=== PATIENT | female | born 1955 | race Caucasian/White ===

== ENCOUNTER 2017-03-02 07:55 | Day surgery (SDC) | payer OTHER ==
[~2017-03-02] VITALS: Ht 152.4 cm; Wt 70.9 kg
[2017-03-02] MEDS ORDERED: LIDOCAINE 4% SOLUTION 50 ML BTL ONE (08:02)
[2017-03-02] MEDS ORDERED: NO MEDS (08:14)
[2017-03-02 08:30] VITALS: BP 139/81; PULSE 68; RESP 18
[2017-03-02 09:50] VITALS: BP 117/71; RESP 20
[2017-03-02] MEDS ORDERED: FENTAnyl 50 MCG/ML VIAL ONE (10:07)
[2017-03-02] MEDS ORDERED: MIDAZOLAM 1 MG/ML 2 ML INJ ONE (10:08)
--- NOTE | 2017-03-03 10:15 | GILP ---
DATE OF PROCEDURE: PROCEDURE PERFORMED: Esophagogastroduodenoscopy. PREOP DIAGNOSIS: Patient presenting with a history of chronic heartburn, rule out gastroesophageal reflux disease, rule out [place] esophagus. POSTOP DIAGNOSIS: 1. Mild reflux esophagitis. 2. 1 cm submucosal type of polyp noted, 1 cm above the GE junction. Biopsy was done. 3. Minimal patchy gastritis. 4. Submucosal polyp noted in the fundus measuring about 5 mm in diameter. 5. Duodenum normal. DESCRIPTION OF PROCEDURE: After informed written consent is obtained, patient was asked to lay in the left lateral side. 2 mg Versed and 50 mcg of fentanyl was given as intravenous anesthesia. When the patient became somnolent, Olympus video upper endoscope was introduced into the oropharynx and then into the esophagus. Esophagus showed evidence of patchy areas of erythema just over the GE junction. There was about 1 cm submucosal polyp noted over the GE junction. Biopsy was done, but the mucosa was friable. Scope at this time was advanced into the stomach. The stomach showed evidence of several areas of patchy erythema. There is evidence of at least 5 mm submucosal polyp noted in the gastric fundus. Biopsy was done. This also appeared to be viable. Biopsy was done from the antrum, lesser curvature and the fundus to rule out H. pylori infection. Duodenum appeared normal. Endoscope at this time was withdrawn. On the way out, no additional abnormalities detected and the procedure was terminated. PLAN: Recommend wait for the pathology report. We will recommend omeprazole 40 mg a day for 2 months. Dictated By: Dennis Garcia MD /june/latia /Document#: [id number]
--- NOTE | 2017-03-03 10:20 | GILP ---
DATE OF PROCEDURE: 03/02/2017 PROCEDURE PERFORMED: Colonoscopy. PREOPERATIVE DIAGNOSIS: Screening colonoscopy. Rule out colon polyps. POSTOPERATIVE DIAGNOSES: 1. No polyps. 2. Minimal external hemorrhoids were noted. DESCRIPTION OF PROCEDURE: After informed written consent is obtained, patient was asked to lie on the left lateral side. A total of 2 mg Versed and 75 mcg of fentanyl was given as intravenous anesthesia. When the patient became somnolent, Olympus video colonoscope was introduced into the rectum and the scope was advanced all the way to the cecum. The entire colon appeared perfectly normal. No polyps noted. No other abnormalities detected. On the way out, retroflexion was performed with no internal hemorrhoids noted. On the way out, external hemorrhoids were noted and the procedure was terminated. PLAN: Recommend a high fiber diet. Repeat colonoscopy in 10 years. Dictated By: Dennis Garcia MD /june/charlotte /Document#: [id number] ; YASIR PASCAL MD
== END 2017-03-02 12:49 | disposition home or self-care (01) ==
LOC: GIL 07:55
PROVIDERS: ATTEND Internal Medicine Gastroenterology
DX: Z12.11 Encounter for screening for malignant neoplasm of colon (principal); K21.0 Gastro-esophageal reflux disease with esophagitis; K64.4 Residual hemorrhoidal skin tags; K29.60 Other gastritis without bleeding
CPT/HCPCS: 43239; 45378; 88305; 88312; J2250; J3010

== ENCOUNTER 2018-08-15 14:04 | Emergency (ER) | payer OTHER ==
[~2018-08-15] VITALS: Ht 167.6 cm; Wt 72.2 kg
[~2018-08-15 14:04] MED LIST: NO MEDS
[2018-08-15 14:22] VITALS: Ht 167.6 cm; Wt 72.2 kg
[2018-08-15] MEDS ORDERED: ONDANSETRON 4 MG INJ IV STA (15:12)
[2018-08-15] MEDS ORDERED: SOD CHLORIDE 0.9% 1,000 ML IV STA (15:12)
[2018-08-15] MEDS ORDERED: morphine 4 MG/ML VIAL IV STA (15:12)
[2018-08-15] MEDS ORDERED: KETOROLAC 30 MG INJ IV STA (16:28)
[2018-08-15] MEDS ORDERED: CEFTRIAXONE 1 GM/50 ML (PMX) 50 ML IVPB ONE (16:30)
[2018-08-15] MEDS ORDERED: IBUP800T48 PO (17:23)
[2018-08-15] MEDS ORDERED: CEPH-443 PO (17:23)
[2018-08-15 17:30] VITALS: BP 145/45; PULSE 68; RESP 18
--- NOTE | 2018-08-15 19:05 | ERD ---
ER Documentation Chief Complaint Chief Complaint Complains of back pain and nausea x 2 days HPI This is a very pleasant 62-year-old female that presents to the emergency department complaining of lower back pain that is been present for the past 48 hours. She states the pain is localized to the midportion of the back but she is also been experiencing frequency urgency and dysuria as well as suprapubic tenderness for the past 48 hours. She had no fevers no shaking or chills. She has not expressed any nausea vomiting diarrhea constipation. She said no recent travel or prolonged immobilization. She denies any changes in her bowel frequency. She denies any saddle anesthesia. She states the back pain does not radiate down the legs and she denies any numbness or tingling of her lower extremities. ROS All systems reviewed and are negative except as per history of present illness. Medications Home Meds Active Scripts Ibuprofen* (Motrin*) 800 Mg Tab, 800 MG PO Q6H PRN for PAIN AND OR ELEVATED TEMP, #30 TAB Prov:ИРИНА MCKNIGHT MD 08/15/18 Cephalexin* (Keflex*) 500 Mg Capsule, 500 MG PO QID for 7 Days, CAP Prov:ИРИНА MCKNIGHT MD 08/15/18 Reported Medications [No Meds] No Conflict Check 03/02/17 Allergies Allergies: Coded Allergies: No Known Allergy (Unverified , 03/02/17) PMhx/Soc History of Surgery: Yes (OOPHERECTOMY, HYSTERECTOMY, CHOLECYTECTOMY) Anesthesia Reaction: No Hx Neurological Disorder: No Hx Respiratory Disorders: No Hx Cardiac Disorders: No Hx Psychiatric Problems: No Hx Miscellaneous Medical Probl: No Hx Alcohol Use: No Hx Substance Use: No Hx Tobacco Use: No Smoking Status: Never smoker Physical Exam Vitals Vital Signs Date Temp Pulse Resp B/P (MAP) Pulse Ox O2 O2 Flow FiO2 Time Delivery Rate 08/15/18 98.3 89 20 181/82 99 14:22 (115) Physical Exam Constitutional:Well-developed. Well-nourished. HEENT:Normocephalic. Atraumatic.Pupils were equal round reactive to light. Moist mucous membranes.No tonsillar exudates. Neck: No nuchal rigidity. No lymphadenopathy. No posterior cervical spine tenderness or step-offs. Respiratory: Not using accessory muscles of respiration.Lungs were clear to auscultation bilaterally. No rhonchi. No rales. No wheezing. Cardiovascular: Regular rate regular rhythm.No murmurs. No rubs were appre ciated.S1, S2 normal. Distal pulses are palpable 2+ bilaterally. GI: Abdomen was soft. Nontender. No pulsatile abdominal masses or bruits. No rebound. No guarding. Bowel sounds were present and normal. Right CVA tenderness. Mild suprapubic tenderness. Muscle skeletal: Full range of motion of both the upper and lower extremities bilaterally.Normal muscle tone.No assymetrical calf tenderness or swelling. No tenderness with palpation or percussion over the thoracic or lumbar spinous processes. Straight leg test negative bilaterally. Skin: No petechia, no purpura. No lesions on the palms or the soles of the feet. No maculopapular rash. NEURO: Patient was alert, awake, orientated x3.No facial droop. Gait observed and normal with no ataxia.Speech had regular rate and rhythm. No focal neurolo gical deficits. Result Diagram: 08/15/18 1536 08/15/18 1536 Results 24 hrs Laboratory Tests Test 08/15/18 15:15 08/15/18 15:36 Urine Color STRAW Urine Clarity SLIGHTLY CLOUDY Urine pH 7.0 Urine Specific [place] 1.009 Urine Ketones NEGATIVE mg/dL Urine Nitrite NEGATIVE mg/dL Urine Bilirubin NEGATIVE mg/dL Urine Urobilinogen NEGATIVE mg/dL Urine Leukocyte Esterase TRACE Josep/ul Urine Microscopic RBC 0 /HPF Urine Microscopic WBC 6 /HPF Urine Squamous Epithelial Cells FEW /HPF Urine Hemoglobin NEGATIVE mg/dL Urine Glucose NEGATIVE mg/dL Urine Total Protein NEGATIVE mg/dl White Blood Count 5.4 10^3/ul Red Blood Count 4.16 10^6/ul Hemoglobin 11.6 g/dl Hematocrit 36.1 % Mean Corpuscular Volume 86.8 fl Mean Corpuscular Hemoglobin 27.9 pg Mean Corpuscular Hemoglobin Concent 32.1 g/dl Red Cell Distribution Width 13.6 % Platelet Count 287 10^3/UL Mean Platelet Volume 11.0 fl Immature Granulocytes % 0.200 % Neutrophils % 48.0 % Lymphocytes % 31.3 % Monocytes % 10.7 % Eosinophils % 8.9 % Basophils % 0.9 % Nucleated Red Blood Cells % 0.0 /100WBC Immature Granulocytes # 0.010 10^3/ul Neutrophils # 2.6 10^3/ul Lymphocytes # 1.7 10^3/ul Monocytes # 0.6 10^3/ul Eosinophils # 0.5 10^3/ul Basophils # 0.1 10^3/ul Nucleated Red Blood Cells # 0.0 10^3/ul Prothrombin Time 12.7 Sec Prothrombin Time Ratio 1.0 INR International Normalized Ratio 0.94 Activated Partial Thromboplast Time 28.1 Sec Sodium Level 140 mmol/L Potassium Level 3.5 mmol/L Chloride Level 104 mmol/L Carbon Dioxide Level 30 mmol/L Anion Gap 6 Blood Urea Nitrogen 16 mg/dl Creatinine 0.63 mg/dl Est Glomerular Filtrat Rate mL/min > 60 mL/min Glucose Level 109 mg/dl Calcium Level 9.5 mg/dl Troponin I < 0.012 ng/ml Current Medications Medications Dose Sig/Andrade Start Time Status Last (Trade) Ordered Route PRN Stop Time Admin Dose Reason Admin Sodium 1,000 ml @ Q1H STAT 08/15/18 DC 08/15/18 Chloride 1,000 mls/hr IV 15:12 08/15/18 15:40 16:11 Morphine 4 mg ONCE STAT 08/15/18 DC 08/15/18 Sulfate IV 15:12 08/15/18 15:41 (morphine) 15:14 Ondansetron 4 mg ONCE STAT 08/15/18 DC 08/15/18 HCl (Zofran IV 15:12 08/15/18 15:40 Inj) 15:14 Ceftriaxone 50 ml @ ONCE ONCE 08/15/18 DC 08/15/18 Sodium 100 mls/hr IVPB 16:30 08/15/18 17:06 16:59 Ketorolac 30 mg ONCE STAT 08/15/18 DC 08/15/18 Tromethamine IV 16:28 08/15/18 17:06 (Toradol) 16:41 Procedures/MDM The patient presented to the emergency department with back pain. My differential diagnosis included but was not limited to spinal origins of the pain such as fracture, osteomyelitis, epidural abscess, neoplasm, spondylo lishtesis, discogenic, cauda equina syndrome or musculoligamentous. Nonspinal causes such as AAA, upper UTI, renal colic, aortic dissection, abdominal neoplasm were also considered as an etiology into their pain. I obtained a 12-lead EKG tracing to rule out for atypical microinfarction. 12 Lead EKG tracing ordered and reviewed by myself showed: Normal sinus rhythm of 73 bpm and no arrhythmia. SD interval normal. QRS duration normal. No ST segment elevation No ST segment depression. No changes consistent with acute ischemia. The patient no severe electrolyte abnormalities. There is no leukocytosis. I did a CT scan of the abdomen and pelvis without contrast that was reviewed by myself the radiologist there is no evidence of appendicitis or obstructive uropathy. The patient did have mild pyuria and I did feel her symptoms could be a result of acute cystitis. She was given a dose of IV antibiotics in the emergency department to be sent home with Keflex. She also received intravenous morphine and Zofran with complete resolution of her pain. The patient was discharged home in fair condition. They were instructed to return to the emergency department at any time if there was any worsening of their condition. The patient stated they would follow up with their PCP in the next 24-48 hours to initiate a suitable medication regimen under the care of their PCP as well as to allow their PCP to monitor any drug reactions. The patient was discharged home with prescriptions after they gave informed consent to the new medication. They were also fully informed by myself on the adverse effects and adverse drug interactions in order to provide adequate safeguards to prevent possible adverse reactions to medications. Departure Diagnosis: Primary Impression: Flank pain Additional Impression: Cystitis Condition: Fair Patient Instructions: Urinary Tract Infections in Women ИРИНА MCKNIGHT MD Aug 15, 2018 19:05
== END 2018-08-15 17:30 | disposition home or self-care (01) ==
LOC: E/R 14:04
DX: N30.90 Cystitis, unspecified without hematuria (principal); R10.9 Unspecified abdominal pain
CPT/HCPCS: 74176; 80048; 81001; 84484; 85025; 85610; 85730; 87086; 93005; 96374; 96375; 99285; J0696; J1885; J2270; J2405; J7030